=== PATIENT | male | born 1970 | race Two or more races ===

== ENCOUNTER 2024-06-22 12:53 | Emergency (ER) | payer MEDICAID ==
[~2024-06-22] VITALS: Ht 149.9 cm; Wt 56.8 kg
[2024-06-22 13:34] VITALS: TEMP 98
[2024-06-22] MEDS: ACETAMINOPHEN 500 MG TABLET PO ONE (15:45)
[2024-06-22 16:15] VITALS: BP 121/69; PULSE 70; RESP 16; O2SAT 98
[2024-06-22] MEDS ORDERED: ACET-3385 PO (16:29)
[2024-06-22] MEDS ORDERED: IBUP-1492 PO (16:30)
== END 2024-06-22 16:57 | disposition home or self-care (01) ==
LOC: EMS 12:53
DX: R51.9 Headache, unspecified (principal); Y08.89XA Assault by other specified means, initial encounter; Y93.89 Activity, other specified; Y92.89 Other specified places as the place of occurrence of the external cause; Y99.8 Other external cause status
CPT/HCPCS: 70450; 99284